=== PATIENT | male | born 2000 | race Hispanic/Latino ===

== ENCOUNTER 2025-02-09 22:03 | Emergency (ER) | payer SELFPAY ==
[2025-02-09 22:04] VITALS: BP 138/60
--- NOTE | 2025-02-09 22:45 | ED.GENMED ---
History of Present Illness
General
Chief Complaint: Skin Surface Trauma
Source: patient
Exam Limitations: none
Time Seen by Provider: 02/09/25 22:14
Nursing documentation reviewed up to this point in time: agreed with
History of Present Illness
History of Present Illness:
25-year-old male presents with a fingertip laceration. Patient was carrying a barrel at work and there was a sharp metal piece on it and he cut his right middle and ring finger. He was brought to urgent care initially and small finger lacerations
were repaired with Dermabond and his tetanus was updated. He says that this evening the Dermabond split apart on the ring finger and so he came to the ER to have it fixed. No other issues.
Past History
Past History
ED Past Medical History: None
ED Past Surgical History: None
Social History
Tobacco: Non-smoker
Personal: Single
Employment: Student
Review of Systems
Review of Systems
All Other Systems: ROS reviewed and negative except as documented in HPI and ROS
Skin: Reports other (Finger laceration)
Phy Exam
Physical Exam
Physical Exam:
General: Well appearing and non-toxic
HEENT: protecting airway
Neck: appears supple
CV: No evidence of cyanosis
Resp: No accessory muscle use
Abd: Non-distended
Extremities: No deformities
Neuro: Alert
Psych: Normal affect
Skin: On the right hand on the pad of the third and fourth digit he has 2 linear very superficial lacerations through the dermis but not extending below the epidermal layer�superficial laceration on the third digit is intact repaired with Dermabond;
laceration on the fourth digit splitting apart slightly
Scores
Heart Failure Risk
Heart Failure Risk Score: Not Applicable
Heart Score for Chest Pain Patients
STEMI patient?: Not applicable
Withdrawal Assessment of Alcohol
Withdrawal Assessment Completed?: Not applicable
Course
Vital Signs
Initial and Last Documented VS:
Initial Vital Signs
Temp Pulse Resp BP Pulse Ox
36.7 C 73 18 138/60 98
02/09/25 22:04 02/09/25 22:04 02/09/25 22:04 02/09/25 22:04 02/09/25 22:04
Last Documented Vital Signs
Temp Pulse Resp BP Pulse Ox
36.7 C 73 18 138/60 98
02/09/25 22:04 02/09/25 22:04 02/09/25 22:04 02/09/25 22:04 02/09/25 22:04
Procedures
Laceration Closure
Right Fourth Finger:
Status of Wound: clean
Size of Wound in cm: 1
Description of Wound Edges: sharp
Preparation: cleaned with saline
Revision/Debridement: routine- no revision
Type of Closure: Dermabond-skin glue
MDM/Problems Addressed
Differential Diagnosis Includes:
Finger laceration
MDM/Problems Addressed:
25-year-old male presents with a superficial fingertip laceration�small approximately 1 cm linear laceration across the pad of the third and fourth digit through the dermal layer but not through the epidermal layer�laceration on the fourth digit
split apart after initial repair with Dermabond in urgent care. Third digit laceration is intact and well-approximated with Dermabond. Applied Steri-Strips and reapplied Dermabond to laceration of the fourth digit. Patient tolerated well.
Tetanus was updated earlier. Stable for discharge.
*Pulse Oximetry
Patient hypoxic: no
*Critical Care Note
Total Time (30-74mins, 75-104mins- exclusive of procedures): Not Applicable
Data Reviewed
Source: patient
ED Attending Note
-
Portions of this chart may have been created with voice recognition software.� Occasional wrong word or��sound alike� substitutions may have occurred due to the inherent limitations of voice recognition software.
Discharge Plan
Departure
Patient Disposition: Home (Routine Discharge)
Date of Disposition: 02/09/25
Time of Disposition: 22:45
Patient with high blood pressure during this ER visit?: No
Discharge Problem:
Laceration of finger
Instructions: Laceration Repair With Glue (DC)
Prescriptions:
No Action
No Current Medications
0
Activity Restrictions/Additional Instructions:
Thank you for visiting the Emergency Department at [facility].
1. Please schedule a follow up appointment as directed. Call first thing tomorrow morning to make an appointment.
2. If indicated, please take your medications as instructed and indicated on discharge paperwork.
3. If any of your symptoms do not improve, or persist, or become more severe within 6-12 hours, please return to the emergency department for further care.
4. Please return to the emergency department if you develop a headache, neck pain/stiffness, fever greater than 100.4F, chest pain, shortness of breath, persistent nausea, vomiting, slurred speech, difficulty walking, numbness/tingling, weakness,
signs of infection or any other symptoms that are worrisome to you.
Please call [phone] if you have any questions.
Interventions
Interventions:
*Risk Screen - Suicide Last Done: 02/09/25 22:04
*General Assessment Last Done: 02/09/25 22:04
*Neglect/Abuse Screening Last Done: 02/09/25 22:04
*ED- Fall Risk Assessment Last Done: 02/09/25 22:04
*ED COVID-19 Vaccine History Last Done: 02/09/25 22:04
ED-Skin Assessment Last Done: 02/09/25 22:30
Discharge Date and Time
Print Language: ARABIC
== END 2025-02-09 23:01 | disposition home or self-care (01) ==
LOC: EMR 22:03
PROVIDERS: EMERGENCY PHYSICIAN Emergency Medicine
DX: S61.212A Laceration without foreign body of right middle finger without damage to nail, initial encounter (principal); S61.214A Laceration without foreign body of right ring finger without damage to nail, initial encounter; W45.8XXA Other foreign body or object entering through skin, initial encounter; Y99.0 Civilian activity done for income or pay
CPT/HCPCS: 12001; 99282